=== PATIENT | female | born 1960 | race Caucasian/White ===

== ENCOUNTER 2017-02-03 06:29 | Day surgery (SDC) | payer BC ==
[~2017-02-03] VITALS: Ht 160 cm; Wt 63.5 kg
--- NOTE | ~2017-02-03 | OP ---
Record Of Operation [facility] [address] [place]. [address] NAME: FAUSTO AVILEZ : 60 STATUS : [facility]#: [id number] AGE: 56 ADM/REG DATE : 02/03/17 MR#: [id number] REPORT SERV DATE: 02/23/17 DICTATED BY: RIK LARA DATE: 02/23/17 REPORT STATUS : Draft TRANSCRIBED BY: SATNAM DATE: 02/23/17 DATE OF PROCEDURE: PREOPERATIVE DIAGNOSES: Left carpal tunnel syndrome, left trigger, index, long, and ring. POSTOPERATIVE DIAGNOSES: Left carpal tunnel syndrome, left trigger, index, long, and ring. PROCEDURES: 1. Left carpal tunnel release. 2. Release of trigger, left index, long, and ring fingers. ANESTHESIA: Local. DESCRIPTION OF PROCEDURE: Under appropriate anesthetic, the patient was prepped and draped in usual fashion. At this time, we did carpal tunnel release first. Incision was made at the base of the palm along the axis of the fourth metacarpal, taken down sharply through the soft tissues until the superficial palmar fascia was encountered. This was divided and carpal content inspected. Moderate degenerative changes had taken place. The wound was irrigated and closed with nylon sutures. At this time, we made incisions over the A1 kishan at the left index, long, and ring fingers, took these down sharply though the soft tissues until we identified the pulleys and then released the pulleys under direct vision. I asked the patient to flex, which she did so. No click or pop was noted. The wound was then irrigated and closed with nylon sutures. Sterile dressings were applied. The patient tolerated this procedure well. RUTHANN/SATNAM Rik Lara M.D. / [id number] CC: Gabriela Smith Katrina V.
[~2017-02-03 06:29] MED LIST: ARMOUR THYRO15 MG PO; ARMOUR THYRO30 MG PO; MINIVELLE1 EAC3 TOP; MULTIPLE VIT PO; PROTONIX PO; WELL75
== END 2017-02-03 23:59 | disposition home or self-care (01) ==
LOC: MSC 06:29
PROC: 0LN80ZZ Release Left Hand Tendon, Open Approach (ICD-10-PCS; 2017-02-03)
PROC: 01N50ZZ Release Median Nerve, Open Approach (ICD-10-PCS; 2017-02-03)
PROC: 0LN80ZZ Release Left Hand Tendon, Open Approach (ICD-10-PCS; principal; 2017-02-03 07:15)
PROC: 0LN80ZZ Release Left Hand Tendon, Open Approach (ICD-10-PCS; 2017-02-03 07:15)
DX: G56.02 Carpal tunnel syndrome, left upper limb (principal); M65.322 Trigger finger, left index finger; M65.332 Trigger finger, left middle finger; M65.342 Trigger finger, left ring finger; Z88.0 Allergy status to penicillin; Z88.5 Allergy status to narcotic agent; Z79.899 Other long term (current) drug therapy; Z90.89 Acquired absence of other organs; Z90.710 Acquired absence of both cervix and uterus; Z98.890 Other specified postprocedural states